=== PATIENT | male | born 1965 | race Caucasian/White ===

== ENCOUNTER → 2016-09-08 | Outpatient (REF) | payer OTHER ==
[2016-09-08 12:26] LABS: ALBUMIN 3.9 GM/DL (3.2-5.2); ALBUMIN/GLOBULIN RATIO 1.34 (1.00-1.93); ALKALINE PHOSPHATASE 66 U/L (45-117); ALT/SGPT 104 U/L (12-78); ANION GAP 9 MEQ/L (8-16); AST/SGOT 64 U/L (15-37); BILIRUBIN,TOTAL 0.4 MG/DL (0.2-1.0); BLOOD UREA NITROGEN 15 MG/DL (7-18); CALCIUM LEVEL 8.6 MG/DL (8.5-10.1); CARBON DIOXIDE LEVEL 29 MEQ/L (21-32); CHLORIDE LEVEL 101 MEQ/L (98-107); CHOLESTEROL LEVEL 180 MG/DL (<200); GAMMA GLUTAMYLTRANSPEPTIDASE 164 U/L (15-85); GLOMERULAR FILTRATION RATE > 60.0 (>60); GLUCOSE, FASTING 268 MG/DL (70-105); POTASSIUM SERUM 4.5 MEQ/L (3.5-5.1); SODIUM LEVEL 139 MEQ/L (136-145); TOTAL PROTEIN 6.8 GM/DL (6.4-8.2); TRIGLYCERIDES LEVEL 179 MG/DL (<150)
== END ==
LOC: M SFHCLERA 08:08
PROVIDERS: ATTEND Physician Assistant
DX: E78.2 Mixed hyperlipidemia (principal); R94.5 Abnormal results of liver function studies; E11.9 Type 2 diabetes mellitus without complications

== ENCOUNTER → 2017-03-18 | Outpatient (REF) | payer OTHER ==
[2017-03-18 10:17] LABS: ALBUMIN 4.1 GM/DL (3.2-5.2); ALBUMIN/GLOBULIN RATIO 1.37 (1.00-1.93); ALKALINE PHOSPHATASE 62 U/L (45-117); ALT/SGPT 124 U/L (12-78); ANION GAP 11 MEQ/L (8-16); AST/SGOT 72 U/L (15-37); BILIRUBIN,TOTAL 0.6 MG/DL (0.2-1.0); BLOOD UREA NITROGEN 18 MG/DL (7-18); CARBON DIOXIDE LEVEL 25 MEQ/L (21-32); CHLORIDE LEVEL 102 MEQ/L (98-107); CHOLESTEROL LEVEL 178 MG/DL (<200); CREATININE FOR GFR 0.96 MG/DL (0.70-1.30); GLOMERULAR FILTRATION RATE > 60.0 (>60); GLUCOSE, FASTING 173 MG/DL (70-105); POTASSIUM SERUM 4.4 MEQ/L (3.5-5.1); SODIUM LEVEL 138 MEQ/L (136-145); TOTAL PROTEIN 7.1 GM/DL (6.4-8.2); TRIGLYCERIDES LEVEL 142 MG/DL (<150)
== END ==
LOC: M SFHCLERA 07:53
PROVIDERS: ATTEND Physician Assistant
DX: E11.65 Type 2 diabetes mellitus with hyperglycemia (principal)

== ENCOUNTER 2017-07-08 08:57 | Emergency (ER) | payer OTHER ==
[~2017-07-08] VITALS: Ht 177.8 cm; Wt 136.4 kg
[2017-07-08] MEDS ORDERED: SERT-138 PO (09:13)
[2017-07-08] MEDS ORDERED: ALBU83IN (09:13)
[2017-07-08] MEDS ORDERED: GLIM2TAB PO (09:13)
[2017-07-08] MEDS ORDERED: AUGM875T28 PO (09:13)
[2017-07-08] MEDS ORDERED: BUPR150T3 PO (09:14)
[2017-07-08] MEDS ORDERED: JANU100T PO (09:14)
[2017-07-08] MEDS ORDERED: LISI10TA4 PO (09:14)
[2017-07-08] MEDS ORDERED: VICT18IN SQ (09:14)
[2017-07-08] MEDS ORDERED: METF500T4 PO (09:14)
[2017-07-08] MEDS ORDERED: ALBUTEROL SULFATE 2.5 MG/0.5 ML INH NEB SOLN NEB ONE (09:45)
--- NOTE | 2017-07-08 10:03 | REP ---
Clinical: Shortness of breath . Comparison: 08/07/2009 . Technique: PA and lateral. Findings: The mediastinum and cardiac silhouette are normal. The lung gupta are clear and without acute consolidation, effusion, or pneumothorax. The skeletal structures are intact and normal. Impression: 1. No acute cardiopulmonary process. Signed by Iron Wiley MD 07/08/2017 09:55 A
[2017-07-08] MEDS ORDERED: DOXY100C37 PO (11:15)
[2017-07-08 11:25] VITALS: BP 138/82
== END 2017-07-08 11:25 | disposition home or self-care (01) ==
LOC: M ED 08:57
DX: J45.901 Unspecified asthma with (acute) exacerbation (principal); J20.9 Acute bronchitis, unspecified; E11.9 Type 2 diabetes mellitus without complications; I10 Essential (primary) hypertension; K76.0 Fatty (change of) liver, not elsewhere classified; F41.9 Anxiety disorder, unspecified; F33.9 Major depressive disorder, recurrent, unspecified; M54.9 Dorsalgia, unspecified; R16.1 Splenomegaly, not elsewhere classified; Z79.899 Other long term (current) drug therapy; Z79.84 Long term (current) use of oral hypoglycemic drugs

== ENCOUNTER → 2017-07-26 | Outpatient (CLI) | payer OTHER ==
[~2017-07-26] MED LIST: ALBU83IN; AUGM875T28 PO; BUPR150T3 PO; DOXY100C37 PO; GLIM2TAB PO; JANU100T PO; LISI10TA4 PO; METF500T4 PO; SERT-138 PO; VICT18IN SQ
--- NOTE | 2017-07-27 07:18 | REP ---
LUMBOSACRAL SPINE: CLINICAL: Lower back pain radiating to the right side. TECHNIQUE: AP, lateral, bilateral oblique and coned down views. COMPARISON: 10/04/2014. FINDINGS: Patient is status post laminectomy and posterior fusion at the L4-S1 levels. Alignment and lordosis is maintained. Very minimal degenerative changes including marginal inferior spurring and end plate sclerosis at the L3-4 level appreciated and remains essentially stable. No acute fracture or compression injury. No subluxation. IMPRESSION: 1. Status post laminectomy and posterior fusion as well as minimal degenerative disc disease at the L3-4 level. Findings remain stable compared to the 2015. Unreviewed
== END ==
LOC: M LRY 08:45
PROVIDERS: ATTEND Physician Assistant
DX: M54.42 Lumbago with sciatica, left side (principal)

== ENCOUNTER → 2017-09-20 | Outpatient (REF) | payer BC ==
[2017-09-20 18:16] LABS: ALBUMIN 4.2 GM/DL (3.2-5.2); ALKALINE PHOSPHATASE 68 U/L (45-117); ALT/SGPT 119 U/L (12-78); ANION GAP 8 MEQ/L (8-16); AST/SGOT 76 U/L (7-37); BILIRUBIN,TOTAL 0.6 MG/DL (0.2-1.0); BLOOD UREA NITROGEN 19 MG/DL (7-18); CALCIUM LEVEL 8.7 MG/DL (8.5-10.1); CARBON DIOXIDE LEVEL 28 MEQ/L (21-32); CHLORIDE LEVEL 104 MEQ/L (98-107); CHOLESTEROL LEVEL 170 MG/DL (<200); CHOLESTEROL RISK RATIO 4.146 (<5); CREATININE FOR GFR 1.09 MG/DL (0.70-1.30); GLOMERULAR FILTRATION RATE > 60.0 (>56); GLUCOSE, FASTING 184 MG/DL (70-100); HDL CHOLESTEROL 41 MG/DL (>40); LDL CHOLESTEROL 90.8 MG/DL (<100); NON-HDL-C 129 MG/DL; POTASSIUM SERUM 4.5 MEQ/L (3.5-5.1); SODIUM LEVEL 140 MEQ/L (136-145); TOTAL PROTEIN 7.2 GM/DL (6.4-8.2); TRIGLYCERIDES LEVEL 191 MG/DL (<150)
[2017-09-20 19:47] LABS: MALB URINE SIEMENS 8.4 MG/L; MAU/CREAT RATIO 7.3 MCG/MG (0.0-30.0)
[2017-09-20 20:14] LABS: ESTIMATED AVERAGE GLUCOSE 203 MG/DL (60-110); HEMOGLOBIN A1c 8.7 %
== END ==
LOC: M SFHCLERA 08:06
DX: I10 Essential (primary) hypertension (principal); E11.65 Type 2 diabetes mellitus with hyperglycemia; E78.2 Mixed hyperlipidemia
CPT/HCPCS: 80053

== ENCOUNTER → 2018-01-17 | Outpatient (CLI) | payer BC | LOC: M LRY 11:37 | DX: M54.17 Radiculopathy, lumbosacral region (principal) ==

== ENCOUNTER → 2018-01-24 | Outpatient (REF) | payer BC ==
[2018-01-24 20:33] LABS: HEMATOCRIT 44.6 % (42.0-52.0); MEAN CORPUSCULAR HEMOGLOBIN 29.4 pg (27.0-33.0); MEAN CORPUSCULAR HGB CONC 33.6 g/dl (32.0-36.5); MEAN CORPUSCULAR VOLUME 87.3 fl (80.0-96.0); PLATELET COUNT, AUTOMATED 143 10^3/uL (150-450); RED BLOOD COUNT 5.11 10^6/uL (4.30-6.10); RED CELL DISTRIBUTION WIDTH 13.3 % (11.5-14.5); WHITE BLOOD COUNT 5.3 10^3/uL (4.0-10.0)
[2018-01-24 20:52] LABS: ESTIMATED AVERAGE GLUCOSE 197 MG/DL (60-110); HEMOGLOBIN A1c 8.5 %
[2018-01-24 20:54] LABS: ALBUMIN 4.3 GM/DL (3.2-5.2); ALBUMIN/GLOBULIN RATIO 1.34 (1.00-1.93); ALKALINE PHOSPHATASE 90 U/L (45-117); ALT/SGPT 136 U/L (12-78); ANION GAP 8 MEQ/L (8-16); AST/SGOT 83 U/L (7-37); BILIRUBIN,TOTAL 0.4 MG/DL (0.2-1.0); BLOOD UREA NITROGEN 19 MG/DL (7-18); CALCIUM LEVEL 8.9 MG/DL (8.5-10.1); CARBON DIOXIDE LEVEL 26 MEQ/L (21-32); CHLORIDE LEVEL 106 MEQ/L (98-107); CHOLESTEROL LEVEL 182 MG/DL (<200); CHOLESTEROL RISK RATIO 4.666 (<5); CREATININE FOR GFR 1.14 MG/DL (0.70-1.30); GLOMERULAR FILTRATION RATE > 60.0 (>56); GLUCOSE, FASTING 234 MG/DL (70-100); HDL CHOLESTEROL 39 MG/DL (>40); LDL CHOLESTEROL 89.2 MG/DL (<100); NON-HDL-C 143 MG/DL; POTASSIUM SERUM 4.6 MEQ/L (3.5-5.1); SODIUM LEVEL 140 MEQ/L (136-145); TOTAL PROTEIN 7.5 GM/DL (6.4-8.2); TRIGLYCERIDES LEVEL 269 MG/DL (<150)
== END ==
LOC: M SFHCLERA 17:54
DX: I10 Essential (primary) hypertension (principal); E78.2 Mixed hyperlipidemia
CPT/HCPCS: 80053

== ENCOUNTER → 2018-01-26 | Outpatient (CLI) | payer BC ==
[~2018-01-26] MED LIST changes: -ALBU83IN; -AUGM875T28 PO; -BUPR150T3 PO; -DOXY100C37 PO; -GLIM2TAB PO; -JANU100T PO; -LISI10TA4 PO; -METF500T4 PO; +PROHANCE 279.3MG/ML 15ML VIAL (A9576) As Ordered; +PROHANCE 279.3MG/ML 5ML VIAL (A9576) As Ordered; -SERT-138 PO; -VICT18IN SQ
== END ==
LOC: M RAD 14:46
DX: M54.5 Low back pain (principal); M21.371 Foot drop, right foot

== ENCOUNTER 2018-02-26 07:02 | Emergency (ER) | payer BC ==
[2018-02-26] MEDS: KETOROLAC 60 MG/2 ML VIAL (J1885) IM (08:00)
== END 2018-02-26 08:56 | disposition home or self-care (01) ==
LOC: M ED 07:02
DX: M47.27 Other spondylosis with radiculopathy, lumbosacral region (principal); E11.9 Type 2 diabetes mellitus without complications; J45.909 Unspecified asthma, uncomplicated; F41.9 Anxiety disorder, unspecified; F32.9 Major depressive disorder, single episode, unspecified; K76.0 Fatty (change of) liver, not elsewhere classified; Z98.1 Arthrodesis status
CPT/HCPCS: J1885

== ENCOUNTER 2018-05-29 10:59 | Outpatient (RCR) | payer BC | END 2018-06-21 | LOC: M PT 10:59 | DX: Z51.89 Encounter for other specified aftercare (principal); M21.371 Foot drop, right foot | CPT/HCPCS: 97110 ==

== ENCOUNTER → 2018-05-29 | Outpatient (CLI) | payer BC | LOC: M RAD 12:00 | DX: R29.2 Abnormal reflex (principal) | CPT/HCPCS: 72141 ==

== ENCOUNTER → 2018-06-13 | Outpatient (REF) | payer BC ==
[2018-06-13 18:43] LABS: ALBUMIN 3.8 GM/DL (3.2-5.2); ALBUMIN/GLOBULIN RATIO 1.31 (1.00-1.93); ALKALINE PHOSPHATASE 63 U/L (45-117); ALT/SGPT 104 U/L (12-78); ANION GAP 6 MEQ/L (8-16); AST/SGOT 67 U/L (7-37); BILIRUBIN,TOTAL 0.3 MG/DL (0.2-1.0); BLOOD UREA NITROGEN 20 MG/DL (7-18); CALCIUM LEVEL 8.2 MG/DL (8.5-10.1); CARBON DIOXIDE LEVEL 28 MEQ/L (21-32); CHLORIDE LEVEL 104 MEQ/L (98-107); CREATININE FOR GFR 1.04 MG/DL (0.70-1.30); GLOMERULAR FILTRATION RATE > 60.0 (>56); GLUCOSE, FASTING 234 MG/DL (70-100); POTASSIUM SERUM 4.7 MEQ/L (3.5-5.1); SODIUM LEVEL 138 MEQ/L (136-145); TOTAL PROTEIN 6.7 GM/DL (6.4-8.2)
[2018-06-13 23:48] LABS: ESTIMATED AVERAGE GLUCOSE 197 MG/DL (60-110); HEMOGLOBIN A1c 8.5 %
== END ==
LOC: M SFHCLERA 08:07
DX: E11.65 Type 2 diabetes mellitus with hyperglycemia (principal)
CPT/HCPCS: 80053

== ENCOUNTER 2018-10-05 13:25 | Emergency (ER) | payer BC ==
[~2018-10-05] VITALS: Ht 177.8 cm; Wt 128.5 kg
[~2018-10-05 13:25] MED LIST changes: +ALBU83IN; +AUGM875T28 PO; +BUPR150T3 PO; +CYCL10TA PO; +DOXY100C37 PO; +GLIM2TAB PO; +GLIM4TAB PO; +JANU100T PO; +KLOR10TA76 PO; +LISI10TA4 PO; +METF-700 PO; +METF500T4 PO; +NEUR300C PO; -PROHANCE 279.3MG/ML 15ML VIAL (A9576) As Ordered; -PROHANCE 279.3MG/ML 5ML VIAL (A9576) As Ordered; +SERT-138 PO; +VICT18IN SQ; +ZOLO100T PO
[2018-10-05 13:26] VITALS: BP 140/67
[2018-10-05] MEDS ORDERED: JANU100T (13:35)
[2018-10-05] MEDS ORDERED: PROAAER10 (13:35)
[2018-10-05] MEDS ORDERED: TOBR0.3S37 OD (14:25)
== END 2018-10-05 14:33 | disposition home or self-care (01) ==
LOC: M ED 13:25
DX: H10.9 Unspecified conjunctivitis (principal); M54.17 Radiculopathy, lumbosacral region; E11.9 Type 2 diabetes mellitus without complications; I10 Essential (primary) hypertension; Z99.89 Dependence on other enabling machines and devices; Z79.899 Other long term (current) drug therapy; Z79.84 Long term (current) use of oral hypoglycemic drugs; Z88.1 Allergy status to other antibiotic agents; J30.89 Other allergic rhinitis

== ENCOUNTER 2018-10-06 16:16 | Emergency (ER) | payer BC ==
[~2018-10-06] VITALS: Ht 177.8 cm; Wt 127.3 kg
[~2018-10-06 16:16] MED LIST changes: +JANU100T; +PROAAER10; +TOBR0.3S37 OD
--- NOTE | 2018-10-06 17:50 | REP ---
RIGHT LOWER EXTREMITY DOPPLER VENOUS ULTRASOUND: 10/06/2018. Clinical history: Right lower extremity swelling and pain, evaluate for DVT. Comparison: None. Technique: The deep venous system of the right lower extremity is evaluated with dennis scale imaging, compression ultrasound, color imaging and duplex Doppler interrogation. Examination from the groin through the popliteal fossa into the proximal calf. Findings: There is full compressibility from the common femoral vein in the inguinal region through the popliteal vein. Color imaging confirms patency throughout the course of the deep venous system. There is respiratory variation and augmented flow at all levels. 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 Impression: 1. No Doppler venous ultrasound evidence of DVT in the right lower extremity. Electronically Signed by Jakub Denise MD 10/06/2018 05:41 P
--- NOTE | 2018-10-06 18:15 | REP ---
RIGHT ANKLE COMPLETE: 10/06/2018. Clinical history: Right ankle pain and swelling. Technique: Four views of the ankle were provided. No prior study. Findings: The ankle mortise joint was symmetric and preserved. There is no talar dome osteochondral defect. Subtalar joints are intact. Small spur at the insertion of the Achilles tendon with the posterior calcaneus without a spur. Subtalar joints and the articulations between the talus and navicular as well as calcaneus and cuboid were normal. Those portion of the tarsal bone and metatarsals seen were unremarkable. Distal tibia and fibula intact. Impression: 1. Small Achilles insertion spur without visible or displaced fracture, avulsion, disruption of the mortise joint or other acute bony finding. Electronically Signed by Jakub Denise MD 10/06/2018 08:14 P
[2018-10-06 18:41] VITALS: BP 139/71
== END 2018-10-06 18:42 | disposition home or self-care (01) ==
LOC: M ED 16:16
DX: R60.0 Localized edema (principal); I10 Essential (primary) hypertension; M21.371 Foot drop, right foot; F41.9 Anxiety disorder, unspecified; F32.9 Major depressive disorder, single episode, unspecified; K76.0 Fatty (change of) liver, not elsewhere classified; Z88.1 Allergy status to other antibiotic agents; J30.89 Other allergic rhinitis; Z79.899 Other long term (current) drug therapy; Z79.84 Long term (current) use of oral hypoglycemic drugs; Z79.2 Long term (current) use of antibiotics

== ENCOUNTER 2018-11-15 07:30 | Outpatient (RCR) | payer BC | END 2018-11-19 | LOC: M PT 07:30 | PROVIDERS: ATTEND Psychiatry & Neurology Neurology | DX: Z51.89 Encounter for other specified aftercare (principal); M54.16 Radiculopathy, lumbar region; M21.371 Foot drop, right foot ==

== ENCOUNTER 2018-12-13 07:30 | Outpatient (RCR) | payer BC | END 2018-12-19 | LOC: M PT 07:30 | PROVIDERS: ATTEND Psychiatry & Neurology Neurology | DX: M21.371 Foot drop, right foot (principal) ==

== ENCOUNTER → 2019-01-20 | Outpatient (CLI) | payer BC ==
--- NOTE | 2019-01-22 09:27 | REP ---
MR LUMBAR SPINE WITHOUT CONTRAST: HISTORY: Radiculopathy. COMPARISON: 10/27/2012 Decreased signal intensity on T2-weighted images is present in the L3-4 through L5-S1 intervertebral discs. The discs are decreased in height. These findings are consistent with disc degeneration. There is no disc bulge or herniation at the L1-2 level. There is hypertrophy of the ligamenta flava and posterior articulating facets. These findings produce minimal central canal stenosis. A diffuse disc bulge is present at the L3-4 level. There is hypertrophy of the ligamenta flava and posterior articulating facets. These findings produce mild central canal stenosis. The L3 nerve exit the neural foramina without compression. The patient is status post L4-5 anterior and L4 to S1 posterior spinal fusion and L4-5 laminectomy. Metal hardware and bone graft material are present. A diffuse disc bulge is present at the L4-5 level. This abuts the thecal sac. The L4 nerves exit the neural foramina without compression. A diffuse disc bulge is present at the L5-S1 level. There is no thecal sac compression. There is hypertrophy of the posterior articulating facets. The L5 nerves exit the neural foramina without compression. The conus medullaris is normal in appearance terminating at the level of the T12-L1 intervertebral disc. Normal signal intensity is present in the lumbar vertebral bodies. There is no subluxation. IMPRESSION: 1. Minimal central canal stenosis at the L2-3 level secondary to disc bulge, ligamentous and facet hypertrophy. This is a new finding. 2. Mild central canal stenosis at the L3-4 level secondary to disc bulge, ligamentous and facet hypertrophy. This is a new finding. 3. The patient is status post L4-5 anterior and L4-S1 spinal fusion and L4-5 laminectomy. There is anatomic alignment. The postoperative change is a new finding. Electronically Signed by Shahab Huertas MD 01/22/2019 09:31 A
== END ==
LOC: M RAD 13:38
DX: M47.26 Other spondylosis with radiculopathy, lumbar region (principal)

== ENCOUNTER → 2019-03-05 | Outpatient (CLI) | payer BC ==
[~2019-03-05] MED LIST changes: -GLIM2TAB PO; +GLIM2TAB4 PO; -GLIM4TAB PO; +GLIM4TAB5 PO; +METF-791 PO; -METF500T4 PO
--- NOTE | 2019-03-05 14:33 | REP ---
CT LUMBAR SPINE WITHOUT CONTRAST: HISTORY: Spondylosis. Right-sided foot drop. Radiculopathy. Comparison MRI study lumbar spine January 20, 2019. This is read as showing minimal central canal stenosis at L2-3 and mild central canal stenosis at L3-4. Status post L4-5 and L5-S1 fusion with laminectomy. TECHNIQUE: Helical scanning is acquired. 4 mm axial images are generated. Sagittal and coronal MPR images are reviewed. CT FINDINGS: Transpedicular screw and dorsal fixation darya fusion procedure has been performed bilaterally L4 through S1. Laminectomies have been performed at L4 and L5 and partial laminectomy at S1 on the left. Lumbar vertebral body heights are preserved. Alignment is normal. There is some spray artifact on images at the fused levels from metallic hardware. The L4-5 and L5-S1 disc spaces appear to be at least partially fused. At L3-4, there is degenerative narrowing. Diffuse mild disc bulging is seen. There is ligamentum flavum hypertrophy. The thecal sac has a triangular configuration as seen on the MRI study consistent with mild central canal stenosis. No bony neural foraminal encroachment is seen. There is discogenic spurring posterolaterally on the left. At L2-3, there is less pronounced minimal central canal stenosis due to disc bulging. There is mild ligamentum flavum hypertrophy. Pedicles developmentally somewhat short. No neural foraminal encroachment is seen. L1-2 there is no significant finding. IMPRESSION: Status post L4 through S1 laminectomy and dorsal darya fusion. Degenerative disc disease at L3-4. Central canal stenosis at L3-4 and to a lesser extent at L2-3. No focal disc protrusion is seen. No bony neural foraminal encroachment is seen. Electronically Signed by Wero Gotti MD 03/05/2019 03:10 P
== END ==
LOC: M RAD 13:55
PROVIDERS: ATTEND Neurological Surgery
DX: M47.26 Other spondylosis with radiculopathy, lumbar region (principal); M21.371 Foot drop, right foot; Z98.1 Arthrodesis status; M51.36 Other intervertebral disc degeneration, lumbar region

== ENCOUNTER → 2019-03-07 | Outpatient (CLI) | payer BC ==
[~2019-03-07] MED LIST changes: +GLIM2TAB PO; -GLIM2TAB4 PO; +GLIM4TAB PO; -GLIM4TAB5 PO; -METF-791 PO; +METF500T4 PO
--- NOTE | 2019-03-08 08:40 | REP ---
Lumbar spine four views AP and lateral projections, including lateral views with flexion and extension: Comparison is 02/26/2018. There are bilateral laminectomies from L4-S1 as previously. There is surgical fusion from L4-S1 with pedicle screws and stabilization rods bilaterally, unchanged. There is an intervertebral disc spacer at L4-5, unchanged. There is no listhesis on flexion or extension. There is degenerative disc disease at every lumbar level, most advanced at L4-5 and L5 S1. Vertebral body heights and alignment are normal. The pedicles, facets and sacroiliac articulations are unremarkable. Impression: No interval change. Postsurgical changes as described. Multilevel degenerative disc disease. No listhesis on flexion or extension. Electronically Signed by Ace Hernandez MD 03/07/2019 11:15 A
== END ==
LOC: M RAD 09:55
PROVIDERS: ATTEND Neurological Surgery
DX: M51.36 Other intervertebral disc degeneration, lumbar region (principal); M21.371 Foot drop, right foot; M51.37 Other intervertebral disc degeneration, lumbosacral region

== ENCOUNTER → 2019-11-05 | Outpatient (REF) | payer BC ==
[~2019-11-05] MED LIST changes: -GLIM2TAB PO; +GLIM2TAB4 PO; -GLIM4TAB PO; +GLIM4TAB5 PO; +METF-791 PO; -METF500T4 PO
[2019-11-05 13:34] LABS: ALT/SGPT 59 U/L (12-78); BILIRUBIN,TOTAL 0.4 MG/DL (0.2-1.0); BLOOD UREA NITROGEN 25 MG/DL (7-18); CALCIUM LEVEL 9.1 MG/DL (8.5-10.1); CARBON DIOXIDE LEVEL 28 MEQ/L (21-32); CHLORIDE LEVEL 105 MEQ/L (98-107); CHOLESTEROL LEVEL 180 MG/DL (<200); CHOLESTEROL RISK RATIO 5.142 (<5); CREATININE FOR GFR 0.96 MG/DL (0.70-1.30); FREE T4 0.97 NG/DL (0.76-1.46); GLOMERULAR FILTRATION RATE > 60.0 (>56); GLUCOSE, FASTING 191 MG/DL (70-100); HDL CHOLESTEROL 35 MG/DL (>40); LDL CHOLESTEROL 117 MG/DL (<100); NON-HDL-C 145 MG/DL; POTASSIUM SERUM 4.7 MEQ/L (3.5-5.1); SODIUM LEVEL 137 MEQ/L (136-145); TRIGLYCERIDES LEVEL 140 MG/DL (<150)
[2019-11-05 13:36] LABS: VITAMIN B12 LEVEL 350 PG/ML (247-911)
== END ==
LOC: M LABDRAW1 09:25
PROVIDERS: ATTEND Nurse Practitioner Family
DX: E78.2 Mixed hyperlipidemia (principal); E11.9 Type 2 diabetes mellitus without complications; Z68.41 Body mass index [BMI] 40.0-44.9, adult

== ENCOUNTER → 2020-03-03 | Outpatient (REF) | payer BC ==
[~2020-03-03] MED LIST changes: +CYCL-707 PO; -CYCL10TA PO; -METF-700 PO; -METF-791 PO; +METF-818 PO; +METF-838 PO
[2020-03-03 11:03] LABS: BLOOD UREA NITROGEN 30 MG/DL (7-18); CALCIUM LEVEL 8.9 MG/DL (8.5-10.1); CARBON DIOXIDE LEVEL 27 MEQ/L (21-32); CHLORIDE LEVEL 105 MEQ/L (98-107); GLOMERULAR FILTRATION RATE > 60.0 (>56); GLUCOSE, FASTING 222 MG/DL (70-100); POTASSIUM SERUM 4.7 MEQ/L (3.5-5.1); SODIUM LEVEL 137 MEQ/L (136-145)
== END ==
LOC: M PLALAB 08:44
PROVIDERS: ATTEND Family Medicine
DX: E11.9 Type 2 diabetes mellitus without complications (principal)

== ENCOUNTER → 2020-04-24 | Outpatient (REF) | payer BC ==
[2020-04-24 19:09] LABS: ALT/SGPT 78 U/L (12-78); BILIRUBIN,TOTAL 0.3 MG/DL (0.2-1.0); BLOOD UREA NITROGEN 26 MG/DL (7-18); CALCIUM LEVEL 9.1 MG/DL (8.5-10.1); CARBON DIOXIDE LEVEL 29 MEQ/L (21-32); CHLORIDE LEVEL 102 MEQ/L (98-107); CREATININE FOR GFR 1.08 MG/DL (0.70-1.30); GLOMERULAR FILTRATION RATE > 60.0 (>56); GLUCOSE, FASTING 231 MG/DL (70-100); POTASSIUM SERUM 5.1 MEQ/L (3.5-5.1); SODIUM LEVEL 137 MEQ/L (136-145)
== END ==
LOC: M SFHCLERA 18:33
PROVIDERS: ATTEND Nurse Practitioner Family
DX: E11.9 Type 2 diabetes mellitus without complications (principal); I10 Essential (primary) hypertension

== ENCOUNTER → 2020-09-18 | Outpatient (REF) | payer BC ==
[~2020-09-18] MED LIST changes: -BUPR150T3 PO; +BUPR150T4 PO
[2020-09-18 13:49] LABS: BASO % 0.9 % (0.0-1.0); EOS # 0.2 10^3/uL (0.0-0.5); EOS % 4.8 % (0.0-3.0); HEMOGLOBIN 13.7 g/dl (13.5-17.5); LYMPH % 28.1 % (24.0-44.0); MEAN CORPUSCULAR HGB CONC 32.6 g/dl (32.0-36.5); MONO # 0.3 10^3/uL (0.0-0.8); MONO % 7.7 % (0.0-5.0); NEUTROPHILS # 2.1 10^3/uL (1.5-8.5); NEUTROPHILS % 58.2 % (36.0-66.0); PLATELET COUNT, AUTOMATED 120 10^3/uL (150-450); RED BLOOD COUNT 4.72 10^6/uL (4.30-6.10); WHITE BLOOD COUNT 3.5 10^3/uL (4.0-10.0)
[2020-09-18 14:34] LABS: ALBUMIN 4.2 GM/DL (3.2-5.2); ALT/SGPT 56 U/L (12-78); BILIRUBIN,TOTAL 0.4 MG/DL (0.2-1.0); BLOOD UREA NITROGEN 24 MG/DL (7-18); CALCIUM LEVEL 9.2 MG/DL (8.5-10.1); CARBON DIOXIDE LEVEL 29 MEQ/L (21-32); CHLORIDE LEVEL 109 MEQ/L (98-107); CHOLESTEROL LEVEL 189 MG/DL (<200); CREATININE FOR GFR 1.08 MG/DL (0.70-1.30); GLOMERULAR FILTRATION RATE > 60.0 (>56); GLUCOSE, FASTING 120 MG/DL (70-100); HDL CHOLESTEROL 36 MG/DL (>40); LDL CHOLESTEROL 127 MG/DL (<100); NON-HDL-C 153 MG/DL; SODIUM LEVEL 141 MEQ/L (136-145); TOTAL PROTEIN 6.8 GM/DL (6.4-8.2); TRIGLYCERIDES LEVEL 132 MG/DL (<150)
[2020-09-18 14:42] LABS: HEMOGLOBIN A1c 6.5 %
[2020-09-18 14:44] LABS: MALB URINE SIEMENS 22.8 MG/L; MAU/CREAT RATIO 12.3 MCG/MG (0.0-30.0)
== END ==
LOC: M SFHCLERA 11:13
PROVIDERS: ATTEND Family Medicine
DX: Z01.818 Encounter for other preprocedural examination (principal); E78.2 Mixed hyperlipidemia; E11.9 Type 2 diabetes mellitus without complications

== ENCOUNTER → 2020-10-31 | Outpatient (CLI) | payer BC ==
[~2020-10-31] MED LIST changes: +BUPR150T12 PO; -BUPR150T4 PO; +LISI10TA22 PO; -LISI10TA4 PO
--- NOTE | 2020-10-31 15:37 | REPPI ---
INDICATION: SPONDYLOSIS WITH RADICULOPATHY COMPARISON: 07/08/2017 TECHNIQUE: PA and lateral. FINDINGS: The mediastinum and cardiac silhouette are normal. The lung gupta are clear and without acute consolidation, effusion, or pneumothorax. The skeletal structures are intact and normal. IMPRESSION: No acute cardiopulmonary process. <Electronically signed by Iron Wiley > 10/31/20 1531
[2020-10-31 18:53] LABS: HEMATOCRIT 43.1 % (42.0-52.0); HEMOGLOBIN 14.4 g/dl (13.5-17.5); MEAN CORPUSCULAR HEMOGLOBIN 29.5 pg (27.0-33.0); MEAN CORPUSCULAR HGB CONC 33.4 g/dl (32.0-36.5); MEAN CORPUSCULAR VOLUME 88.3 fl (80.0-96.0); PLATELET COUNT, AUTOMATED 131 10^3/uL (150-450); RED BLOOD COUNT 4.88 10^6/uL (4.30-6.10); WHITE BLOOD COUNT 5.2 10^3/uL (4.0-10.0)
[2020-10-31 19:10] LABS: INR 1.28; PROTHROMBIN TIME 16.3 SECONDS (12.5-14.3)
[2020-10-31 19:26] LABS: ALT/SGPT 58 U/L (12-78); BILIRUBIN,TOTAL 0.3 MG/DL (0.2-1.0); BLOOD UREA NITROGEN 29 MG/DL (7-18); CALCIUM LEVEL 8.5 MG/DL (8.5-10.1); CARBON DIOXIDE LEVEL 27 MEQ/L (21-32); CHLORIDE LEVEL 105 MEQ/L (98-107); CREATININE FOR GFR 0.92 MG/DL (0.70-1.30); GLOMERULAR FILTRATION RATE > 60.0 (>56); GLUCOSE, FASTING 184 MG/DL (70-100); POTASSIUM SERUM 4.5 MEQ/L (3.5-5.1); SODIUM LEVEL 137 MEQ/L (136-145); TOTAL PROTEIN 6.8 GM/DL (6.4-8.2)
== END ==
LOC: M PLAIMG 15:03
PROVIDERS: ATTEND Neurological Surgery
DX: M47.26 Other spondylosis with radiculopathy, lumbar region (principal)

== ENCOUNTER → 2020-11-12 | Outpatient (REF) | payer BC ==
[2020-11-12 15:35] LABS: APPEARANCE, URINE CLEAR (CLEAR); BACTERIA, URINE AUTO NEGATIVE (NEGATIVE); BILIRUBIN, URINE AUTO NEGATIVE (NEGATIVE); BLOOD, URINE BLOOD NEGATIVE (NEGATIVE); COLOR, URINE YELLOW (YELLOW); GLUCOSE, URINE (UA) AUTO 3+ mg/dL (NEGATIVE); KETONE, URINE AUTO NEGATIVE (NEGATIVE); LEUKOCYTE ESTERASE, URINE AUTO NEGATIVE (NEGATIVE); MUCUS, URINE SMALL (NEGATIVE); NITRITE, URINE AUTO NEGATIVE (NEGATIVE); PROTEIN, URINE AUTO NEGATIVE (NEGATIVE); RBC, URINE AUTO 0 /HPF (0-3); SPECIFIC GRAVITY URINE AUTO 1.017 (1.002-1.035); SQUAMOUS EPITHELIAL CELL UR AU 0 /HPF (0-6); UROBILINOGEN, URINE AUTO 0.2 mg/dL (0.0-2.0); WBC, URINE AUTO 0 /HPF (0-3)
== END ==
LOC: M LAB REF 15:16
PROVIDERS: ATTEND Neurological Surgery
DX: M47.26 Other spondylosis with radiculopathy, lumbar region (principal)

== ENCOUNTER → 2020-11-12 | Outpatient (CLI) | payer BC | LOC: M LABSMTC 13:43 | PROVIDERS: ATTEND Neurological Surgery | DX: M47.26 Other spondylosis with radiculopathy, lumbar region (principal) ==

== ENCOUNTER → 2021-04-01 | Outpatient (CLI) | payer BC ==
[~2021-04-01] MED LIST changes: -DOXY100C37 PO; +DOXY1CAP62 PO
[2021-04-01 10:39] LABS: APPEARANCE, URINE CLEAR (CLEAR); BACTERIA, URINE AUTO NEGATIVE (NEGATIVE); BILIRUBIN, URINE AUTO NEGATIVE (NEGATIVE); BLOOD, URINE BLOOD NEGATIVE (NEGATIVE); COLOR, URINE YELLOW (YELLOW); GLUCOSE, URINE (UA) AUTO 3+ mg/dL (NEGATIVE); KETONE, URINE AUTO NEGATIVE (NEGATIVE); LEUKOCYTE ESTERASE, URINE AUTO NEGATIVE (NEGATIVE); MUCUS, URINE SMALL (NEGATIVE); NITRITE, URINE AUTO NEGATIVE (NEGATIVE); PROTEIN, URINE AUTO NEGATIVE (NEGATIVE); RBC, URINE AUTO 0 /HPF (0-3); SPECIFIC GRAVITY URINE AUTO 1.022 (1.002-1.035); SQUAMOUS EPITHELIAL CELL UR AU 0 /HPF (0-6); UROBILINOGEN, URINE AUTO 0.2 mg/dL (0.0-2.0); WBC, URINE AUTO 1 /HPF (0-3)
[2021-04-01 10:41] LABS: HEMOGLOBIN 13.9 g/dl (13.5-17.5); MEAN CORPUSCULAR HEMOGLOBIN 28.8 pg (27.0-33.0); MEAN CORPUSCULAR HGB CONC 32.3 g/dl (32.0-36.5); PLATELET COUNT, AUTOMATED 109 10^3/uL (150-450); RED BLOOD COUNT 4.83 10^6/uL (4.30-6.10); WHITE BLOOD COUNT 3.6 10^3/uL (4.0-10.0)
[2021-04-01 10:51] LABS: INR 1.27; PROTHROMBIN TIME 16.3 SECONDS (12.7-14.5)
[2021-04-01 10:52] LABS: PARTIAL THROMBOPLASTIN TIME 35.7 SECONDS (25.9-37.0)
[2021-04-01 11:17] LABS: ALT/SGPT 65 U/L (12-78); BILIRUBIN,TOTAL 0.3 MG/DL (0.2-1.0); BLOOD UREA NITROGEN 27 MG/DL (7-18); CALCIUM LEVEL 9.3 MG/DL (8.5-10.1); CARBON DIOXIDE LEVEL 28 MEQ/L (21-32); CHLORIDE LEVEL 107 MEQ/L (98-107); CREATININE FOR GFR 0.98 MG/DL (0.70-1.30); GLOMERULAR FILTRATION RATE > 60.0 (>56); GLUCOSE, FASTING 179 MG/DL (70-100); POTASSIUM SERUM 5.1 MEQ/L (3.5-5.1); SODIUM LEVEL 140 MEQ/L (136-145); TOTAL PROTEIN 6.6 GM/DL (6.4-8.2)
== END ==
LOC: M PLALAB 08:26
PROVIDERS: ATTEND Neurological Surgery
DX: Z01.812 Encounter for preprocedural laboratory examination (principal)

== ENCOUNTER → 2022-04-02 | Outpatient (CLI) | payer BC ==
[~2022-04-02] MED LIST changes: +ALBU2.5V10; -ALBU83IN; +DOXY-443 PO; -DOXY1CAP62 PO; -KLOR10TA76 PO; +POTA-136 PO
== END ==
LOC: M PLAIMG 11:23
PROVIDERS: ATTEND Student in an Organized Health Care Education/Training Program
DX: R41.3 Other amnesia (principal)

== ENCOUNTER → 2022-04-07 | Outpatient (CLI) | payer BC ==
[2022-04-07 13:37] LABS: BASO % 0.6 % (0.0-1.0); EOS # 0.2 10^3/uL (0.0-0.5); EOS % 3.8 % (0.0-3.0); HEMATOCRIT 43.2 % (42.0-52.0); HEMOGLOBIN 14.3 g/dl (13.5-17.5); LYMPH # 1.3 10^3/uL (1.5-5.0); LYMPH % 27.4 % (24.0-44.0); MEAN CORPUSCULAR HEMOGLOBIN 29.1 pg (27.0-33.0); MEAN CORPUSCULAR HGB CONC 33.1 g/dl (32.0-36.5); MEAN CORPUSCULAR VOLUME 87.8 fl (80.0-96.0); MONO # 0.3 10^3/uL (0.0-0.8); MONO % 6.5 % (2.0-8.0); NEUTROPHILS # 2.9 10^3/uL (1.5-8.5); NEUTROPHILS % 60.6 % (36.0-66.0); PLATELET COUNT, AUTOMATED 111 10^3/uL (150-450); RED BLOOD COUNT 4.92 10^6/uL (4.30-6.10); WHITE BLOOD COUNT 4.8 10^3/uL (4.0-10.0)
[2022-04-07 14:13] LABS: ALBUMIN 3.9 GM/DL (3.2-5.2); ALT/SGPT 84 U/L (12-78); BILIRUBIN,TOTAL 0.5 MG/DL (0.2-1.0); BLOOD UREA NITROGEN 13 MG/DL (7-18); C REACTIVE PROTEIN QUANTITATIV 0.42 MG/DL (0.00-0.30); CARBON DIOXIDE LEVEL 26 MEQ/L (21-32); CHLORIDE LEVEL 106 MEQ/L (98-107); CREATININE FOR GFR 1.01 MG/DL (0.70-1.30); GLOMERULAR FILTRATION RATE > 60.0 (>56); GLUCOSE, FASTING 172 MG/DL (70-100); POTASSIUM SERUM 4.4 MEQ/L (3.5-5.1); SODIUM LEVEL 135 MEQ/L (136-145); TOTAL PROTEIN 6.8 GM/DL (6.4-8.2)
[2022-04-07 14:28] LABS: ERYTHROCYTE SEDIMENTATION RATE 7 mm/hr (0-20)
[2022-04-07 14:41] LABS: VITAMIN B12 LEVEL 469 PG/ML (247-911)
[2022-04-08 19:40] LABS: HEMOGLOBIN A1c 7.6 %
== END ==
LOC: M LAB 13:06
PROVIDERS: ATTEND Student in an Organized Health Care Education/Training Program
DX: R41.3 Other amnesia (principal)

== ENCOUNTER → 2022-05-03 | Outpatient (CLI) | payer BC | LOC: M RAD 14:32 | PROVIDERS: ATTEND Student in an Organized Health Care Education/Training Program | DX: R09.89 Other specified symptoms and signs involving the circulatory and respiratory systems (principal) ==

== ENCOUNTER → 2022-06-30 | Outpatient (CLI) | payer BC | LOC: M PLALAB 12:55 | PROVIDERS: ATTEND Student in an Organized Health Care Education/Training Program | DX: M25.471 Effusion, right ankle (principal); M25.371 Other instability, right ankle; M25.59 Pain in other specified joint ==

== ENCOUNTER → 2022-08-06 | Outpatient (CLI) | payer BC | LOC: M PLALAB 14:02 | PROVIDERS: ATTEND Student in an Organized Health Care Education/Training Program | DX: M25.562 Pain in left knee (principal) ==

== ENCOUNTER → 2022-12-31 | Outpatient (CLI) | payer BC, OTHER ==
[2022-12-31 07:30] LABS: HEMATOCRIT 43.7 % (42.0-52.0); HEMOGLOBIN 14.3 g/dl (13.5-17.5); MEAN CORPUSCULAR HEMOGLOBIN 28.9 pg (27.0-33.0); MEAN CORPUSCULAR HGB CONC 32.7 g/dl (32.0-36.5); MEAN CORPUSCULAR VOLUME 88.5 fl (80.0-96.0); PLATELET COUNT, AUTOMATED 101 10^3/uL (150-450); RED BLOOD COUNT 4.94 10^6/uL (4.30-6.10); WHITE BLOOD COUNT 3.8 10^3/uL (4.0-10.0)
[2022-12-31 07:52] LABS: CREATININE, URINE 183.5 MG/DL
[2022-12-31 07:53] LABS: MALB URINE SIEMENS < 3.0 MG/L; MAU/CREAT RATIO 1.6 MCG/MG (0.0-30.0)
[2022-12-31 07:55] LABS: ALKALINE PHOSPHATASE 77 U/L (46-116); ALT/SGPT 93 U/L (7.0-40); AST/SGOT 69 U/L (<34); BILIRUBIN,TOTAL 0.5 MG/DL (0.3-1.2); BLOOD UREA NITROGEN 24 MG/DL (9-23); CALCIUM LEVEL 8.5 MG/DL (8.5-10.1); CARBON DIOXIDE LEVEL 30 MMOL/L (20-31); CHLORIDE LEVEL 104 MMOL/L (98-107); CHOLESTEROL LEVEL 94 MG/DL (<200); CHOLESTEROL RISK RATIO 2.79 (<5); CREATININE FOR GFR 1.07 MG/DL (0.70-1.30); GLOMERULAR FILTRATION RATE > 60.0 (>56); GLUCOSE, FASTING 178 MG/DL (60-100); HDL CHOLESTEROL 33.6 MG/DL (>40); LDL CHOLESTEROL 26.6 MG/DL (<100); MAGNESIUM LEVEL 1.9 MG/DL (1.8-2.4); NON-HDL-C 60.4 MG/DL; POTASSIUM SERUM 4.5 MMOL/L (3.5-5.1); SODIUM LEVEL 140 MMOL/L (136-145); TOTAL PROTEIN 6.5 G/DL (5.7-8.2); TRIGLYCERIDES LEVEL 169 MG/DL (<150)
[2022-12-31 07:57] LABS: TOTAL 25(OH) VITAMIN D 28.7 NG/ML (20.0-100.0); VITAMIN B12 LEVEL 521 PG/ML (211-911)
== END ==
LOC: M LAB 06:25
PROVIDERS: ATTEND Family Medicine
DX: E78.2 Mixed hyperlipidemia (principal); F41.8 Other specified anxiety disorders; E11.65 Type 2 diabetes mellitus with hyperglycemia; I10 Essential (primary) hypertension; G47.33 Obstructive sleep apnea (adult) (pediatric); K75.81 Nonalcoholic steatohepatitis (NASH); M21.371 Foot drop, right foot

== ENCOUNTER → 2023-02-23 | Outpatient (CLI) | payer BC | LOC: M PLALAB 10:36 | PROVIDERS: ATTEND Family Medicine | DX: N40.1 Benign prostatic hyperplasia with lower urinary tract symptoms (principal) | CPT/HCPCS: 36415; G0103 ==

== ENCOUNTER → 2023-02-24 | Outpatient (REF) | payer BC | LOC: M SFHCPLAZ 17:18 | PROVIDERS: ATTEND Family Medicine | DX: L98.9 Disorder of the skin and subcutaneous tissue, unspecified (principal) ==

== ENCOUNTER → 2023-04-05 | Outpatient (REF) | LOC: M PLAIMG 10:15 | PROVIDERS: ATTEND Internal Medicine | DX: M51.36 Other intervertebral disc degeneration, lumbar region (principal) ==

== ENCOUNTER 2023-08-18 13:45 | Outpatient (RCR) | payer BC | END 2023-08-21 | LOC: M PT 13:45 | PROVIDERS: ATTEND Family Medicine | DX: M75.02 Adhesive capsulitis of left shoulder (principal) ==

== ENCOUNTER 2023-09-13 09:51 | Outpatient (RCR) | payer BC | END 2023-09-21 | LOC: M PT 09:51 | PROVIDERS: ATTEND Family Medicine | DX: M75.02 Adhesive capsulitis of left shoulder (principal) ==

== ENCOUNTER → 2023-10-13 | Outpatient (REF) | payer BC | LOC: M SFHCDERM 17:33 | PROVIDERS: ATTEND Nurse Practitioner Family | DX: C43.61 Malignant melanoma of right upper limb, including shoulder (principal) ==

== ENCOUNTER → 2023-10-14 | Outpatient (CLI) | payer BC | LOC: M PLAIMG 12:48 | PROVIDERS: ATTEND Family Medicine | DX: M25.562 Pain in left knee (principal) ==

== ENCOUNTER → 2023-11-04 | Outpatient (REF) | payer BC | LOC: M LAB REF 13:13 | PROVIDERS: ATTEND Surgery | DX: D03.59 Melanoma in situ of other part of trunk (principal) ==

== ENCOUNTER → 2023-12-15 | Outpatient (CLI) | payer BC ==
[2023-12-15 13:36] LABS: HEMOGLOBIN 14.5 g/dl (13.5-17.5); MEAN CORPUSCULAR HEMOGLOBIN 30.1 pg (27.0-33.0); MEAN CORPUSCULAR HGB CONC 33.7 g/dl (32.0-36.5); MEAN CORPUSCULAR VOLUME 89.2 fl (80.0-96.0); PLATELET COUNT, AUTOMATED 108 10^3/uL (150-450); RED BLOOD COUNT 4.82 10^6/uL (4.30-6.10); WHITE BLOOD COUNT 4.8 10^3/uL (4.0-10.0)
[2023-12-15 13:39] LABS: ALBUMIN 3.9 G/DL (3.2-5.2); ALKALINE PHOSPHATASE 71 U/L (46-116); ALT/SGPT 47 U/L (7.0-40); AST/SGOT 38 U/L (<34); BILIRUBIN,TOTAL 0.6 MG/DL (0.3-1.2); BLOOD UREA NITROGEN 19 MG/DL (9-23); CALCIUM LEVEL 9.3 MG/DL (8.5-10.1); CARBON DIOXIDE LEVEL 30 MMOL/L (20-31); CHLORIDE LEVEL 101 MMOL/L (98-107); CHOLESTEROL LEVEL 76 MG/DL (<200); CHOLESTEROL RISK RATIO 2.23 (<5); CREATININE FOR GFR 1.03 MG/DL (0.70-1.30); GLOMERULAR FILTRATION RATE > 60.0 (>56); GLUCOSE, FASTING 102 MG/DL (60-100); LDL CHOLESTEROL 22.4 MG/DL (<100); POTASSIUM SERUM 4.4 MMOL/L (3.5-5.1); PSA SCREENING 0.29 NG/ML (< 4.00); SODIUM LEVEL 138 MMOL/L (136-145); THYROID STIMULATING HORMONE 2.897 uIU/ML (0.55-4.78); TOTAL PROTEIN 6.6 G/DL (5.7-8.2); TRIGLYCERIDES LEVEL 98 MG/DL (<150)
[2023-12-15 13:49] LABS: HEMOGLOBIN A1c 7.2 % (4.0-6.0)
== END ==
LOC: M PLALAB 09:08
PROVIDERS: ATTEND Family Medicine
DX: K75.81 Nonalcoholic steatohepatitis (NASH) (principal); Z12.5 Encounter for screening for malignant neoplasm of prostate; G47.33 Obstructive sleep apnea (adult) (pediatric); E78.2 Mixed hyperlipidemia; E11.59 Type 2 diabetes mellitus with other circulatory complications; R41.3 Other amnesia; E66.01 Morbid (severe) obesity due to excess calories; Z68.41 Body mass index [BMI] 40.0-44.9, adult
CPT/HCPCS: 36415; 80053; 80061; 82172; 83010; 83036; 83883; 84443; 85027; G0103

== ENCOUNTER → 2024-05-22 | Outpatient (REF) | payer BC ==
[~2024-05-22] MED LIST changes: +DOXY-441 PO; -DOXY-443 PO
[2024-05-22 18:51] LABS: MALB URINE SIEMENS < 3.0 MG/L; MAU/CREAT RATIO 2.7 MCG/MG (0.0-30.0)
== END ==
LOC: M LAB REF 16:58
PROVIDERS: ATTEND Nurse Practitioner Family
DX: E11.65 Type 2 diabetes mellitus with hyperglycemia (principal); Z79.4 Long term (current) use of insulin

== ENCOUNTER → 2024-09-27 | Outpatient (CLI) | payer BC, MEDICARE ==
[~2024-09-27] MED LIST changes: +METF-1157 PO; -METF-818 PO
[2024-09-27 09:16] LABS: HEMATOCRIT 42.9 % (42.0-52.0); HEMOGLOBIN 14.2 g/dl (13.5-17.5); MEAN CORPUSCULAR HEMOGLOBIN 29.5 pg (27.0-33.0); MEAN CORPUSCULAR HGB CONC 33.1 g/dl (32.0-36.5); MEAN CORPUSCULAR VOLUME 89.2 fl (80.0-96.0); PLATELET COUNT, AUTOMATED 117 10^3/uL (150-450); RED BLOOD COUNT 4.81 10^6/uL (4.30-6.10); WHITE BLOOD COUNT 4.5 10^3/uL (4.0-10.0)
[2024-09-27 09:26] LABS: INR 1.27; PROTHROMBIN TIME 16.2 SECONDS (12.5-14.5)
[2024-09-27 09:41] LABS: ALBUMIN 3.7 G/DL (3.2-5.2); ALKALINE PHOSPHATASE 65 U/L (40-129); ALT/SGPT 35 U/L (7.0-40); AST/SGOT 30 U/L (<34); BILIRUBIN,TOTAL 0.4 MG/DL (0.3-1.2); BLOOD UREA NITROGEN 16 MG/DL (9-23); CALCIUM LEVEL 9.2 MG/DL (8.5-10.1); CARBON DIOXIDE LEVEL 27 MMOL/L (20-31); CHLORIDE LEVEL 104 MMOL/L (98-107); CREATININE FOR GFR 1.04 MG/DL (0.70-1.30); GLOMERULAR FILTRATION RATE > 60.0 (>56); GLUCOSE, FASTING 143 MG/DL (60-100); HEMOGLOBIN A1c 5.8 % (4.0-6.0); POTASSIUM SERUM 4.3 MMOL/L (3.5-5.1); SODIUM LEVEL 141 MMOL/L (136-145); TOTAL PROTEIN 6.9 G/DL (5.7-8.2)
== END ==
LOC: M RAD 08:22
PROVIDERS: ATTEND Family Medicine
DX: K74.60 Unspecified cirrhosis of liver (principal)